=== PATIENT | female | born 1985 | race Caucasian/White ===

== ENCOUNTER 2024-12-17 18:16 | Emergency (ER) | payer BC, SELFPAY ==
[2024-12-17] VITALS (21 sets, daily range): BP systolic 107–148; BP diastolic 72–101; PULSE 74–100; RESP 13–22; TEMP 36.7–36.8; O2SAT 99–100
--- NOTE | 2024-12-17 19:34 | ECG_ITS ---
Test Date: 2024-12-17 19:45:12 Measurements Intervals [place] Rate: 87 P: 43 NC: 179 QRS: 17 QRSD: 86 T: 10 QT: 340 QTc: 410 Interpretive Statements SINUS RHYTHM BASELINE ARTIFACT- I, II, III, AVR, AVL, AVF, V1-V6 NORMAL ECG No previous ECG available for comparison Electronically Signed On 12-18-2024 08:28:11 CDT by Aman Winters D.O.
[2024-12-17 20:10] LABS: Hematocrit 24.0 % (37.0-47.0); Immature Platelet Fraction Pct 3.4 % (0.9-11.2); Mean Corpuscular HGB Conc 25.8 g/dl (32-36); Mean Corpuscular Hemoglobin 15.1 pg (26-34); Mean Corpuscular Volume 58.5 fl (80-100); Platelet Count Result 136 k/mm3 (150-375); Red Blood Count 4.10 M/mm3 (4.2-5.4); White Blood Count 3.2 K/mm3 (4.5-10.0)
[2024-12-17 20:15] LABS: Hemoglobin 6.2 g/dL (12.0-15.0)
[2024-12-17 20:21] LABS: Alanine Aminotransferase 11 U/L (6-35); Albumin Level 4.3 g/dL (3.5-5.1); Alkaline Phosphatase 56 U/L (38-126); Anion Gap 8 mmol/L (4-12); Aspartate Amino Transferase 24 U/L (14-36); Bilirubin,Total 0.4 mg/dL (0.2-1.3); Blood Urea Nitrogen 9 mg/dL (7-17); Calcium 8.7 mg/dL (8.4-10.2); Carbon Dioxide 22 mmol/L (22-30); Chloride 107 mmol/L (98-107); Estimated CRCL calculation 83 ml/min; Estimated Glomerular Filt Rate > 60; Glucose 100 mg/dL (65-110); Lipase 125 U/L (23-300); Potassium 4.0 mmol/L (3.4-5.0); Sodium 137 mmol/L (137-145); Total Protein 8.0 g/dL (6.3-8.2)
[2024-12-17] MEDS: ONDANSETRON INJ 4 MG/2 ML VIAL IV PUSH (20:28)
[2024-12-17 20:47] LABS: Anisocytosis 2+; Band Neutrophils Percent 2 % (0-6); Eosinophils Absolute Manual 0.09 K/mm3 (0.02-0.50); Eosinophils Percent Manual 3 % (0-4); Lymphocytes Absolute Manual 1.63 K/mm3 (1.1-4.5); Lymphocytes Percent Manual 51.0 % (18-44); Metamyelocytes Percent 2 %; Microcytosis 3+ (NORMAL); Neutrophils Absolute Manual 1.40 K/mm3 (1.3-6.7); Neutrophils Percent Manual 42 % (46-73); Total Cells Counted 100
[2024-12-17 20:48] LABS: Hypochromasia 3+; Ovalocytes 1+; Schistocytes Rare
[2024-12-17 21:10] LABS: BEDSIDEPREGUCG Negative (Negative)
[2024-12-17 21:14] LABS: Add Urine Microscopic? YES; Appearance Urine Clear (Clear); Glucose Urine UA Negative (Negative); Leukocyte Esterase Ur Trace LEU/UL (Negative); Nitrate Urine Negative (Negative); Non Pathogenic Casts 0-2; Specific Grav Ur 1.019 (1.001-1.035)
--- NOTE | 2024-12-17 22:18 | ED_ITS ---
HPI - Weakness General Chief complaint: Nausea/Vomiting/Diarrhea <Chantelle Goyal PA-C - Last Filed: 12/18/24 16:39> Stated complaint: Anemia, Dizzy, [place], hard time staying awake. <Chantelle Goyal PA-C - Last Filed: 12/18/24 16:39> Time Seen by Provider: 12/17/24 19:44 <Chantelle Goyal PA-C - Last Filed: 12/18/24 16:39> Source: patient <Chantelle Goyal PA-C - Last Filed: 12/18/24 16:39> Mode of arrival: ambulatory <Chantelle Goyal PA-C - Last Filed: 12/18/24 16:39> Limitations: no limitations <Chantelle Goyal PA-C - Last Filed: 12/18/24 16:39> History of Present Illness HPI Narrative: This is a 39 year old female that presents to the ER for weakness, lightheadedness. Worsening over the last couple of days. Reports history of anemia for which she follows with a round kiln drawer, reports she missed her most recent IV iron infusion. <Chantelle Goyal PA-C - Last Filed: 12/18/24 16:39> Related Data Allergies/Adverse reactions: Allergies Allergy/AdvReac Type Severity Reaction Status Date / Time Penicillins Allergy Unknown Unknown Verified 12/17/24 19:53 <Chantelle Goyal PA-C - Last Filed: 12/18/24 16:39> Review of Systems 2 Review of Systems: All systems reviewed & are unremarkable except as noted in HPI and below <Chantelle Goyal PA-C - Last Filed: 12/18/24 16:39> PMFSH Past Medical History Medical History: Medical History (Updated 12/18/24 @ 00:44 by Chantelle Goyal PA-C) Anemia <Chantelle Goyal PA-C - Last Filed: 12/18/24 16:39> Exam 2 Narrative: GENERAL: Well-appearing, well-nourished, and in no acute distress. HEAD: Normocephalic, atraumatic. EYES: EOMI. ENT: Nares clear, no rhinorrhea or epistaxis. Mucous membranes moist. Oropharynx without tonsillar hypertrophy exudate or other lesions. CHEST: Clear to auscultation. No respiratory distress. No wheezes rales or rhonchi HEART: Regular rate and rhythm. No murmur heard. Normal peripheral pulses. ABDOMEN: Soft, nontender, nondistended, normal active bowel sounds. EXTREMITIES: Normal range of motion. No edema. SKIN: Warm, dry, no rash. NEURO: No focal deficits. Alert and oriented x3. PSYCH: Normal mood and affect <Chantelle Goyal PA-C - Last Filed: 12/18/24 16:39> Course Reevaluation(s) Reevaluation #1: Assumed care of this patient at shift change with pending disposition after blood transfusion. Patient tolerated well she was observed here in the ER for 1 hour. She declined repeat blood work. She feels comfortable going home. <Jeff Nelson MD - Last Filed: 12/18/24 04:11> Vital Signs Vital signs: Vital Signs Temperature 98.3 F 12/17/24 18:22 Pulse Rate 100 12/17/24 18:22 Respiratory Rate 19 12/17/24 18:22 Blood Pressure 148/101 H 12/17/24 18:22 Pulse Oximetry 100 12/17/24 18:22 Oxygen Delivery Room Air 12/17/24 18:22 Temperature 97.8 F 12/18/24 03:17 Pulse Rate 69 12/18/24 04:13 Respiratory Rate 14 12/18/24 04:13 Blood Pressure 126/85 12/18/24 04:13 Pulse Oximetry 100 12/18/24 04:13 Oxygen Delivery Room Air 12/17/24 19:52 <Chantelle Goyal PA-C - Last Filed: 12/18/24 16:39> Vital Signs Temperature 98.3 F 12/17/24 18:22 Pulse Rate 100 12/17/24 18:22 Respiratory Rate 19 12/17/24 18:22 Blood Pressure 148/101 H 12/17/24 18:22 Pulse Oximetry 100 12/17/24 18:22 Oxygen Delivery Room Air 12/17/24 18:22 Temperature 97.8 F 12/18/24 03:17 Pulse Rate 69 12/18/24 04:13 Respiratory Rate 14 12/18/24 04:13 Blood Pressure 126/85 12/18/24 04:13 Pulse Oximetry 100 12/18/24 04:13 Oxygen Delivery Room Air 12/17/24 19:52 <Jeff Nelson MD - Last Filed: 12/18/24 04:11> MDM - Weakness MDM Narrative Medical decision making narrative: Patient presents to the ER for weakness, lightheadedness. Report history of anemia. Missed her most recent iron infusion. Her vitals are stable. Cbc shows microcytic anemia with hemoglobin of 6.2. No active bleeding at this time. Metabolic panel without concerning findings. Urine without evidence of infection. test is negative. Patient transfused 2 units packed RBCs. Will follow up with her round kiln drawer <Chantelle Goyal PA-C - Last Filed: 12/18/24 16:39> Differential Diagnosis Differential diagnosis: Likely anemia, dehydration and other (electrolyte derangement) <Chantelle Goyal PA-C - Last Filed: 12/18/24 16:39> Lab Data Attestation: I reviewed the patient's lab results. <Chantelle Goyal PA-C - Last Filed: 12/18/24 16:39> Result diagrams: 12/17/24 19:59 12/17/24 19:59 <Chantelle Goyal PA-C - Last Filed: 12/18/24 16:39> Labs: Lab Results 12/17/24 12/17/24 12/17/24 Range/Units 19:59 21:02 21:09 WBC 3.2 L (4.5-10.0) K/mm3 RBC 4.10 L (4.2-5.4) M/mm3 Hgb 6.2 L* (12.0-15.0) g/dL Hct 24.0 L (37.0-47.0) % MCV 58.5 L (80-100) fl MCH 15.1 L (26-34) pg MCHC 25.8 L (32-36) g/dl RDW 22.0 H (11.5-14.5) % Plt Count 136 L (150-375) k/mm3 MPV TNP Immature Gran % (Auto) Not Reportable Neut % (Auto) Not Reportable Lymph % (Auto) Not Reportable [place] % (Auto) Not Reportable Eos % (Auto) Not Reportable Baso % (Auto) Not Reportable Lymph # (Auto) Not Reportable [place] # (Auto) Not Reportable Eos # (Auto) Not Reportable Baso # (Auto) Not Reportable Abs Immat Gran (auto) Not Reportable Absolute Neuts (auto) Not Reportable Absolute Nucleated RBC Not Reportable Total Counted 100 Neutrophils % (Manual) 42 L (46-73) % Band Neutrophils % 2 (0-6) % Lymphocytes % (Manual) 51.0 H (18-44) % Eosinophils % (Manual) 3 (0-4) % Metamyelocytes % 2 % Nucleated RBC % Not Reportable Abs Neuts (Manual) 1.40 (1.3-6.7) K/mm3 Abs Lymphs (Manual) 1.63 (1.1-4.5) K/mm3 Absolute Eos (Manual) 0.09 (0.02-0.50) K/mm3 Platelet Estimate Slightly decreased (Adequate) Clumped Platelets Present % Immature Plt Fraction 3.4 (0.9-11.2) % Hypochromasia 3+ Anisocytosis 2+ Microcytosis 3+ (NORMAL) Ovalocytes 1+ Schistocytes Rare Sodium 137 (137-145) mmol/L Potassium 4.0 (3.4-5.0) mmol/L Chloride 107 (98-107) mmol/L Carbon Dioxide 22 (22-30) mmol/L Anion Gap 8 (4-12) mmol/L BUN 9 (7-17) mg/dL Creatinine 0.79 (0.7-1.0) mg/dL Estim Creat Clear Calc 83 ml/min Estimated GFR > 60 (59 - ) Glucose 100 (65-110) mg/dL Calcium 8.7 (8.4-10.2) mg/dL Total Bilirubin 0.4 (0.2-1.3) mg/dL AST 24 (14-36) U/L ALT 11 (6-35) U/L Alkaline Phosphatase 56 (38-126) U/L Total Protein 8.0 (6.3-8.2) g/dL Albumin 4.3 (3.5-5.1) g/dL Lipase 125 (23-300) U/L Urine Color Yellow (Yellow) Urine Appearance Clear (Clear) Urine pH 5.5 (5.0-9.0) Ur Specific [place] 1.019 (1.001-1.035) Urine Protein Negative (Negative) mg/dL Urine Glucose (UA) Negative (Negative) mg/dL Urine Ketones Negative (Negative) mg/dL Ur Blood (Man) Negative (Negative) Urine Nitrate Negative (Negative) Urine Bilirubin Negative (Negative) Urine Urobilinogen 1.0 (<2.0) mg/dL Leukocyte Esterase Rfl Trace H (Negative) JENIFER/UL Urine RBC 0-2 (0-2) /hpf Urine WBC 0-5 (0-3) /hpf Ur Squamous Epith Cells None seen (Few) /hpf Urine Bacteria None seen /hpf Urine Casts 0-2 POC Urine HCG, Qual Negative (Negative) Blood Type O Positive Antibody Screen Negative Crossmatch See Detail <Chantelle Goyal PA-C - Last Filed: 12/18/24 16:39> Lab Results 12/17/24 12/17/24 12/17/24 Range/Units 19:59 21:02 21:09 WBC 3.2 L (4.5-10.0) K/mm3 RBC 4.10 L (4.2-5.4) M/mm3 Hgb 6.2 L* (12.0-15.0) g/dL Hct 24.0 L (37.0-47.0) % MCV 58.5 L (80-100) fl MCH 15.1 L (26-34) pg MCHC 25.8 L (32-36) g/dl RDW 22.0 H (11.5-14.5) % Plt Count 136 L (150-375) k/mm3 MPV TNP Immature Gran % (Auto) Not Reportable Neut % (Auto) Not Reportable Lymph % (Auto) Not Reportable [place] % (Auto) Not Reportable Eos % (Auto) Not Reportable Baso % (Auto) Not Reportable Lymph # (Auto) Not Reportable [place] # (Auto) Not Reportable Eos # (Auto) Not Reportable Baso # (Auto) Not Reportable Abs Immat Gran (auto) Not Reportable Absolute Neuts (auto) Not Reportable Absolute Nucleated RBC Not Reportable Total Counted 100 Neutrophils % (Manual) 42 L (46-73) % Band Neutrophils % 2 (0-6) % Lymphocytes % (Manual) 51.0 H (18-44) % Eosinophils % (Manual) 3 (0-4) % Metamyelocytes % 2 % Nucleated RBC % Not Reportable Abs Neuts (Manual) 1.40 (1.3-6.7) K/mm3 Abs Lymphs (Manual) 1.63 (1.1-4.5) K/mm3 Absolute Eos (Manual) 0.09 (0.02-0.50) K/mm3 Platelet Estimate Slightly decreased (Adequate) Clumped Platelets Present % Immature Plt Fraction 3.4 (0.9-11.2) % Hypochromasia 3+ Anisocytosis 2+ Microcytosis 3+ (NORMAL) Ovalocytes 1+ Schistocytes Rare Sodium 137 (137-145) mmol/L Potassium 4.0 (3.4-5.0) mmol/L Chloride 107 (98-107) mmol/L Carbon Dioxide 22 (22-30) mmol/L Anion Gap 8 (4-12) mmol/L BUN 9 (7-17) mg/dL Creatinine 0.79 (0.7-1.0) mg/dL Estim Creat Clear Calc 83 ml/min Estimated GFR > 60 (59 - ) Glucose 100 (65-110) mg/dL Calcium 8.7 (8.4-10.2) mg/dL Total Bilirubin 0.4 (0.2-1.3) mg/dL AST 24 (14-36) U/L ALT 11 (6-35) U/L Alkaline Phosphatase 56 (38-126) U/L Total Protein 8.0 (6.3-8.2) g/dL Albumin 4.3 (3.5-5.1) g/dL Lipase 125 (23-300) U/L Urine Color Yellow (Yellow) Urine Appearance Clear (Clear) Urine pH 5.5 (5.0-9.0) Ur Specific [place] 1.019 (1.001-1.035) Urine Protein Negative (Negative) mg/dL Urine Glucose (UA) Negative (Negative) mg/dL Urine Ketones Negative (Negative) mg/dL Ur Blood (Man) Negative (Negative) Urine Nitrate Negative (Negative) Urine Bilirubin Negative (Negative) Urine Urobilinogen 1.0 (<2.0) mg/dL Leukocyte Esterase Rfl Trace H (Negative) JENIFER/UL Urine RBC 0-2 (0-2) /hpf Urine WBC 0-5 (0-3) /hpf Ur Squamous Epith Cells None seen (Few) /hpf Urine Bacteria None seen /hpf Urine Casts 0-2 POC Urine HCG, Qual Negative (Negative) Blood Type O Positive Antibody Screen Negative Crossmatch See Detail <Jeff Nelson MD - Last Filed: 12/18/24 04:11> ECG Data EKG #1: ECG completion date: 12/17/24 <Chantelle Goyal PA-C - Last Filed: 12/18/24 16:39> EKG Interpretation: normal rate, sinus rhythm, no ST changes and normal QT <Chantelle Goyal PA-C - Last Filed: 12/18/24 16:39> Critical Care Time Critical Care Time Critical Care Time: Yes <Chantelle Goyal PA-C - Last Filed: 12/18/24 16:39> Total Critical Care Time: 35 <Chantelle Goyal PA-C - Last Filed: 12/18/24 16:39> Discharge Plan Discharge Clinical Impression: Anemia Qualifiers: Anemia type: unspecified type Qualified Code(s): D64.9 - Anemia, unspecified <Chantelle Goyal PA-C - Last Filed: 12/18/24 16:39> Patient Disposition: Home <MARIANELA Buitrago Last Filed: 12/18/24 16:39> Condition: Improved <Chantelle Goyal PA-C - Last Filed: 12/18/24 16:39> Instructions: Anemia (ED) <Chantelle Goyal PA-C - Last Filed: 12/18/24 16:39> Additional Instructions: Return to the emergency department if you experience fever, chest pain, shortness of breath, you pass out, or any other symptoms that are concerning to you Follow-up with your round kiln drawer <Chantelle Goyal PA-C - Last Filed: 12/18/24 16:39> Patient Language: Yi <MARIANELA Buitrago Last Filed: 12/18/24 16:39> Follow-up/Referrals: PHYSICIAN,DIRECTOR PUBLIC POLICY [Primary Care Provider, Internal Medicine] Cyril Garcia MD [Physician, Family Practice] <Chantelle Goyal PA-C - Last Filed: 12/18/24 16:39> Time of Disposition: 04:10 <Chantelle Goyal PA-C - Last Filed: 12/18/24 16:39> 04:10 <Jeff Nelson MD - Last Filed: 12/18/24 04:11>
[2024-12-17] MEDS: SODIUM CHLORIDE 0.9% IV 250 ML 30 ML IV CONT (23:09)
[2024-12-17] MEDS: TUBING, BLOOD PLUM PUMP TUBING 1 EACH XX (23:10)
[2024-12-18] VITALS (13 sets, daily range): BP systolic 109–126; BP diastolic 60–89; PULSE 69–86; RESP 14–19; TEMP 36.4–36.8; O2SAT 100
[2024-12-18] MEDS: TUBING, BLOOD PLUM PUMP TUBING 1 EACH XX (01:32)
--- NOTE | 2024-12-18 04:09 | PC.NURSE ---
Patient is tough stick, multiple attempts to obtain repeat H&H, unsuccessful. Patient refusing any more sticks. ERP notified.
== END 2024-12-18 04:28 | disposition home or self-care (01) ==
PROVIDERS: Physician Assistant; Emergency Provider Family Medicine
DX: D64.9 Anemia, unspecified (principal)
CPT/HCPCS: 36415; 36430; 80053; 81001; 81025; 83690; 85025; 85055; 86850; 86900; 86901; 86923; 93005; 96361; 96374; 99285; J2405; J7050; P9016